=== PATIENT | female | born 1985 | race Caucasian/White ===

== ENCOUNTER 2019-01-19 14:49 | Emergency (ER) | payer BC ==
[~2019-01-19] VITALS: Ht 162.6 cm; Wt 79.5 kg
[2019-01-19 15:27] VITALS: BP 109/70; PULSE 70; RESP 18; Ht 162.6 cm; Wt 79.5 kg
[2019-01-19] MEDS ORDERED: NAPR-985 PO (17:59)
[2019-01-19] MEDS ORDERED: CYCL10TA7 PO (17:59)
--- NOTE | 2019-01-19 18:07 | ERD ---
ER Documentation Chief Complaint Chief Complaint BACK PAIN X 7 DAYS HPI This is a 33-year old female patient who presents to the emergency room with complaint of mid back pain x several years, pain increased with sitting and lying, improves with walking. Denies injury, fever, paresthesia. ROS All systems reviewed and are negative except as per history of present illness. Medications Home Meds Active Scripts Cyclobenzaprine Hcl* (Cyclobenzaprine Hcl*) 10 Mg Tablet, 10 MG PO QHS for BACK PAIN for 10 Days, #10 TAB Prov:VERONICA HARVEY [employer] 01/19/19 Naproxen* (Naprosyn*) 500 Mg Tablet, 500 MG PO BID PRN for PAIN AND/OR IN FLAMMATION for 10 Days, #20 TAB Prov:VERONICA HARVEY [employer] 01/19/19 PMhx/Soc Medical and Surgical Hx: pt denies Medical Hx, pt denies Surgical Hx Hx Alcohol Use: No Hx Substance Use: No Hx Tobacco Use: No Smoking Status: Never smoker Physical Exam Vitals Vital Signs Date Temp Pulse Resp B/P (MAP) Pulse Ox O2 O2 Flow FiO2 Time Delivery Rate 01/19/19 98.5 70 18 109/70 97 15:27 (83) Physical Exam Const: No acute distress Head: Atraumatic Const: No acute distress, no recent weight loss Neck: Full range of motion. No meningismus. Resp: Clear to auscultation bilaterally Cardio: Regular rate and rhythm, no murmurs Abd: Soft, non tender, non distended. Normal bowel sounds Skin: No petechiae or rashes Ext: No cyanosis, or edema, +cms Back Exam: Skin: No bruising or rash, no ecchymosis Compartments: Soft Motor: Muscular strength 5/5 flexion and extension of bilateral hip/knee/ankle/foot, gait symmetric Sensation: Intact to light touch throughout, +sensation of tightness in back muscles with extension of arms and forward flexion Bones: No midline point tenderness or step-off, no CVT Straight leg test: negative at 30 degrees Lumbar root: L4 (+quad ext, +squat & rise), L5 (+dorsiflex great toe, +heel walking), S1 (+plantar flex, +walk on toes) Procedures/MDM Patient is able to ambulate to treatment area without assistance. Patient is seated on the stretcher without obvious distress. There is no surface trauma. No muscle tenderness to palpation, no spasms, no step-off or deformity, no CVA tenderness to percussion, patient is able to stand erect. Normal flexion and extension with lateral bending and rotation without limitation. Heel and toe walk with good strength Straight leg raise negative for radiculopathy sensation to light touch is intact. Due to patient's presentation today there is low suspicion for malignancy, infection, epidural abscess, cauda equina syndrome, herniation, AAA. Patient's musculoskeletal symptoms have stabilized while they have been evaluated in the department and are appropriate for outpatient work up. Patient is being discharged home with instructions to follow-up with primary care provider. Patient is also provided prescription for NSAID with instructions for use of heat, ice, stretching. Red flags discussed, patient verbalized understanding of signs and symptoms to return to emergency room. Departure Diagnosis: Primary Impression: Back pain Condition: Stable Patient Instructions: Back Pain (Acute Or Chronic) Referrals: [facility] YOU HAVE RECEIVED A MEDICAL SCREENING EXAM AND THE RESULTS INDICATE THAT YOU DO NOT HAVE A CONDITION THAT REQUIRES URGENT TREATMENT IN THE EMERGENCY DEPARTMENT. FURTHER EVALUATION AND TREATMENT OF YOUR CONDITION CAN WAIT UNTIL YOU ARE SEEN IN YOUR DOCTORS OFFICE WITHIN THE NEXT 1-2 DAYS. IT IS YOUR RESPONSIBILITY TO MAKE AN APPOINTMENT FOR FOLOW-UP CARE. IF YOU HAVE A PRIMARY DOCTOR --you should call your primary doctor and schedule an appointment IF YOU DO NOT HAVE A PRIMARY DOCTOR YOU CAN CALL OUR PHYSICIAN REFERRAL HOTLINE AT IF YOU CAN NOT AFFORD TO SEE A PHYSICIAN YOU CAN CHOSE FROM THE FOLLOWING [facility] [address] [facility]. [facility] [address] [facility] [address] [facility]. [facility] [address] [facility]. [facility] [address] [facility]. [facility]. [address] Additional Instructions: Thank you very much for allowing us to participate in your care. Your health and safety is our top priority at [facility]. Call your primary care doctor TOMORROW for an appointment during the next 2-4 days and bring all the information and medications prescribed. Have prescriptions filled and follow precisely the directions on the label. If the symptoms get worse and your provider is unavailable, return to the Emergency Department immediately. DO NOT TAKE IBUPROFEN 800 MG MORE THAN 3X PER DAY DO NOT TAKE ASPIRIN 325 MG MORE THAN 4X PER DAY TAKE NAPROXYN 500 MG ONCE IN THE MORNING, ONCE IN THE EVENING PLEASE ONLY TAKE ONE OF THE MEDICATIONS AT A TIME, TAKING THESE TOGETHER INCREASES YOUR CHANCE OF BLEEDING TAKE FLEXERIL ONE TABLET BEFORE BEDTIME USE OTHER SELF-CARE METHODS SUCH STRETCHING, EXERCISE, HEATING PAD FOLLOW-UP WITH YOUR PRIMARY CARE DOCTOR FOR REFERRAL TO PHYSICAL THERAPY VERONICA HARVEY NP Jan 19, 2019 18:07
== END 2019-01-19 19:17 | disposition home or self-care (01) ==
LOC: FTE 14:49
DX: M54.9 Dorsalgia, unspecified (principal)
CPT/HCPCS: 99283